=== PATIENT | male | born 1950 | race Caucasian/White ===

== ENCOUNTER 2016-10-03 19:30 | Inpatient (IN) | payer MEDICARE, MEDICAID ==
[~2016-10-03] VITALS: Ht 196.8 cm; Wt 109.9 kg
[~2016-10-03 19:30] MED LIST: AMLO2.5T2 PO; APIX5TAB PO; ASPI-496 PO; DIAZ5TAB PO; DOCU-30 PO; HYDR-3307 PO; INSU100C SQ-INSULIN; INSU100C5 SQ-INSULIN; INSU100I28 SQ-INSULIN; INSU100V13 SQ; LACT10SO28 PO; METF500T PO; METF500T4 PO; METO50TA82 PO; OXYC-229 PO; OXYC-302 PO; OXYC10TA32 PO; QUET50TA5 PO; RIVA15TA PO; RIVA20TA PO; THIA100V3 PO; TRAM-28 PO; ZONI100C13 PO
[2016-10-03] MEDS ORDERED: DEXTROSE 50%, 50ML SYRINGE ONE ×3 (19:44→22:30)
[2016-10-03] MEDS ORDERED: DEXTROSE 50%, 50ML SYRINGE IVPush ONE ×4 (20:00→23:00)
[2016-10-03] MEDS ORDERED: SODIUM CHLORIDE 0.9% 1,000 ML IV ONE (20:02)
[2016-10-03] MEDS ORDERED: NALOXONE 0.4 MG/ML, 1ML ONE (20:07)
[2016-10-03] MEDS ORDERED: NALOXONE 0.4 MG/ML, 1ML IVPush ONE (20:30)
[2016-10-03] MEDS ORDERED: SODIUM CHLORIDE FLUSH 10ML SYR IVF ONE (20:30)
[2016-10-03] MEDS ORDERED: SODIUM CHLORIDE 0.9% 1,000ML IVBOLUS ONE ×2 (20:30→21:00)
[2016-10-03 20:32] LABS: HEMOGLOBIN 12.9 g/dL (13.7-18.0)
[2016-10-03 20:40] LABS: ASPARTATE AMINO TRANSFERASE 15 U/L (15-37); BLOOD UREA NITROGEN 49 mg/dL (7-18)
[2016-10-03] MEDS ORDERED: DEXTROSE 10% 500 ML IV SCH (21:30)
[2016-10-03 22:11] LABS: ICTOTEST POSITIVE
[2016-10-03] MEDS ORDERED: BISACODYL 10 MG SUPP PR PRN (22:30)
[2016-10-03] MEDS ORDERED: DEXTROSE 10% 1,000 ML IV SCH ×2 (22:30→22:43)
[2016-10-03] MEDS: ZONISAMIDE 50 MG CAPSULE PO SCH (22:30)
[2016-10-03] MEDS ORDERED: ACETAMINOPHEN 325 MG TABLET PO PRN (22:30)
[2016-10-03] MEDS: LACTULOSE 10 GM/15 ML UDC PO SCH (22:30)
[2016-10-03] MEDS: APIXABAN 5 MG TABLET PO SCH (22:30)
[2016-10-03] MEDS ORDERED: ONDANSETRON 2MG/ML, 2ML IVP PRN (22:30)
[2016-10-04 00:11] LABS: DAU SCREEN DISCLAIMER
[2016-10-04 01:57] VITALS: BP 135/85
[2016-10-04 02:00] VITALS: BP 135/85
[2016-10-04 04:00] VITALS: BP 90/74
[2016-10-04 05:16] LABS: HEMOGLOBIN 10.9 g/dL (13.7-18.0)
[2016-10-04 05:31] LABS: ASPARTATE AMINO TRANSFERASE 13 U/L (15-37); BLOOD UREA NITROGEN 42 mg/dL (7-18)
[2016-10-04] MEDS: ZONISAMIDE 50 MG CAPSULE PO SCH ×2 (09:00→11:36)
[2016-10-04] MEDS: APIXABAN 5 MG TABLET PO SCH ×2 (09:00→11:35)
[2016-10-04] MEDS: INSULIN ASPART 100 UNITS/ML, PEN SQ-INSULIN SCH ×3 (11:28→20:12)
[2016-10-04] MEDS: LACTULOSE 10 GM/15 ML UDC PO SCH ×2 (11:35→20:12)
[2016-10-04] MEDS ORDERED: LACTULOSE 10 GM/15 ML UDC PO ONE (13:00)
[2016-10-04 16:00] VITALS: BP 128/44
[2016-10-04 17:49] VITALS: BP 146/77
[2016-10-04 19:18] VITALS: BP 152/80
[2016-10-05 02:25] VITALS: BP 149/82
[2016-10-05 06:10] LABS: BLOOD UREA NITROGEN 27 mg/dL (7-18)
[2016-10-05 06:42] VITALS: BP 155/81
[2016-10-05] MEDS: INSULIN ASPART 100 UNITS/ML, PEN SQ-INSULIN SCH ×4 (08:42→20:23)
[2016-10-05] MEDS: LACTULOSE 10 GM/15 ML UDC PO SCH ×2 (08:43→20:22)
[2016-10-05 13:04] VITALS: BP 107/66
[2016-10-05] MEDS: HEPARIN 5,000 UNITS/ML, 1ML SQ SCH ×2 (17:01→23:05)
[2016-10-05] MEDS ORDERED: INSU100V13 SQ (18:08)
[2016-10-05] MEDS ORDERED: IBUP800T PO (18:08)
[2016-10-05] MEDS ORDERED: LINA145C PO (18:08)
[2016-10-05] MEDS ORDERED: OXYC-229 PO (18:08)
[2016-10-05] MEDS: OXYcodone/APAP 5/325MG TABLET PO PRN (18:31)
[2016-10-05 19:06] VITALS: BP 110/63
[2016-10-06 01:55] VITALS: BP 122/66
[2016-10-06 06:42] VITALS: BP 150/86
[2016-10-06] MEDS: LACTULOSE 10 GM/15 ML UDC PO SCH ×2 (08:11→21:08)
[2016-10-06] MEDS: HEPARIN 5,000 UNITS/ML, 1ML SQ SCH ×3 (08:16→23:50)
[2016-10-06] MEDS: INSULIN ASPART 100 UNITS/ML, PEN SQ-INSULIN SCH ×4 (08:18→21:08)
[2016-10-06] MEDS: OXYcodone/APAP 5/325MG TABLET PO PRN (12:20)
[2016-10-06 12:55] VITALS: BP 129/78
[2016-10-06 19:19] VITALS: BP 135/77
[2016-10-07 01:10] VITALS: BP 128/92
[2016-10-07 06:49] VITALS: BP 157/81
[2016-10-07] MEDS: OXYcodone/APAP 5/325MG TABLET PO PRN (08:05)
[2016-10-07] MEDS: HEPARIN 5,000 UNITS/ML, 1ML SQ SCH (08:06)
[2016-10-07] MEDS: LACTULOSE 10 GM/15 ML UDC PO SCH (08:06)
[2016-10-07] MEDS: INSULIN ASPART 100 UNITS/ML, PEN SQ-INSULIN SCH ×2 (08:07→11:18)
[2016-10-07] MEDS ORDERED: LISINOPRIL 5 MG TABLET PO SCH (09:00)
[2016-10-07] MEDS ORDERED: INSU100V8 SQ (09:49)
[2016-10-07] MEDS ORDERED: OXYC1TAB7 PO (09:49)
[2016-10-07] MEDS ORDERED: LISI5TAB7 PO (09:49)
[2016-10-07 13:29] VITALS: BP 164/79
== END 2016-10-07 14:04 | DRG 896 ==
LOC: ED 21:35 → EDIP 21:40 → CCU 22:46 → 3NE 10-04 17:35
PROVIDERS: ADMIT Internal Medicine; ATTEND Internal Medicine
PROC: 0T9B70Z Drainage of Bladder with Drainage Device, Via Natural or Artificial Opening (ICD-10-PCS; principal; 2016-10-03)
DX: F11.288 Opioid dependence with other opioid-induced disorder (principal); G93.40 Encephalopathy, unspecified; N17.0 Acute kidney failure with tubular necrosis; E87.2 Acidosis; D68.69 Other thrombophilia; E87.6 Hypokalemia; D64.9 Anemia, unspecified; E11.649 Type 2 diabetes mellitus with hypoglycemia without coma; I10 Essential (primary) hypertension; E11.65 Type 2 diabetes mellitus with hyperglycemia; G47.30 Sleep apnea, unspecified; F32.9 Major depressive disorder, single episode, unspecified; M19.90 Unspecified osteoarthritis, unspecified site; R62.7 Adult failure to thrive; N20.0 Calculus of kidney; G89.29 Other chronic pain; K59.03 Drug induced constipation; G40.909 Epilepsy, unspecified, not intractable, without status epilepticus; Z79.01 Long term (current) use of anticoagulants; Z79.4 Long term (current) use of insulin; Z86.711 Personal history of pulmonary embolism; Z87.442 Personal history of urinary calculi; Z88.8 Allergy status to other drugs, medicaments and biological substances; Z91.19 Patient's noncompliance with other medical treatment and regimen
CPT/HCPCS: 36415; 74022; 80048; 80053; 80307; 81001; 82140; 82962; 83036; 83605; 83880; 85025; 87081; 87086; 93005; 96361; 96374; 96375; J1644; J1815; J2310; 92523-GN; J7030

== ENCOUNTER 2016-10-26 20:36 | Emergency (ER) | payer MEDICARE, MEDICAID ==
[~2016-10-26] VITALS: Ht 198.1 cm; Wt 106.8 kg
[~2016-10-26 20:36] MED LIST changes: +IBUP800T PO; +INSU100V8 SQ; +LINA145C PO; +LISI5TAB7 PO; +OXYC1TAB7 PO
[2016-10-26 20:41] VITALS: BP 152/82
== END 2016-10-26 21:03 | disposition home or self-care (01) ==
LOC: EDBD 20:57 → ED 20:57
DX: Z02.9 Encounter for administrative examinations, unspecified (principal)

== ENCOUNTER 2016-10-26 21:02 | Emergency (ER) | payer MEDICARE, MEDICAID ==
[~2016-10-26] VITALS: Ht 198.1 cm; Wt 106.8 kg
[2016-10-27 03:09] VITALS: BP 137/89
== END 2016-10-27 03:39 | disposition home or self-care (01) ==
LOC: MERGE 23:59 → ED 23:59
DX: M48.56XA Collapsed vertebra, not elsewhere classified, lumbar region, initial encounter for fracture (principal); M47.896 Other spondylosis, lumbar region; E11.9 Type 2 diabetes mellitus without complications
CPT/HCPCS: 72148; 99284

== ENCOUNTER 2016-11-08 20:16 | Inpatient (IN) | payer MEDICARE, MEDICAID ==
[~2016-11-08] VITALS: Ht 198.1 cm; Wt 113.6 kg
[2016-11-08] MEDS ORDERED: ALBUTEROL SULFATE 2.5 MG/3 ML ONE (21:11)
[2016-11-08] MEDS ORDERED: ALBUTEROL SULFATE 2.5 MG/3 ML NPPB ONE (21:30)
[2016-11-08] MEDS ORDERED: AZITHROMYCIN 500 MG in SODIUM CHLORIDE 0.9% 250 ML IVPB ONE (21:30)
[2016-11-08] MEDS ORDERED: SODIUM CHLORIDE FLUSH 10ML SYR IVF ONE (21:30)
[2016-11-08] MEDS ORDERED: methylPREDNISolone SOD SUCC 125 MG/2 ML IVP ONE (21:30)
[2016-11-08] MEDS ORDERED: methylPREDNISolone SOD SUCC 125 MG/2 ML ONE (21:36)
[2016-11-08] MEDS ORDERED: SODIUM CHLORIDE 0.9% 1,000 ML IV ONE (22:09)
[2016-11-08 22:17] LABS: ASPARTATE AMINO TRANSFERASE 11 U/L (15-37); BLOOD UREA NITROGEN 22 mg/dL (7-18)
[2016-11-08 22:22] LABS: IS PT STATUS REG ER OR PRE ER? YES
[2016-11-08] MEDS ORDERED: CEFTRIAXONE PMX 1GM/50ML 50 ML IV ONE (22:30)
[2016-11-08] MEDS ORDERED: SODIUM CHLORIDE 0.9%, 500ML IVBOLUS ONE (22:30)
[2016-11-08] MEDS ORDERED: CEFTRIAXONE PMX 1GM/50ML 50 ML ONE (23:17)
[2016-11-09] MEDS ORDERED: GUAIFENESIN/DM 200-20MG, 10ML UDC PO PRN
[2016-11-09] MEDS ORDERED: POLYETHYLENE GLYCOL 17 GM PACKET PO PRN
[2016-11-09] MEDS ORDERED: TEMPLATE NON-FORMULARY MED. (Insulin Aspart** (Novolog**) 0 UNITS) SQ-INSULIN SCH
[2016-11-09] MEDS ORDERED: VANCOMYCIN PER PHARMACY MC PRN
[2016-11-09] MEDS ORDERED: ACETAMINOPHEN 325 MG TABLET PO PRN
[2016-11-09] MEDS ORDERED: ONDANSETRON 2MG/ML, 2ML IVP PRN
[2016-11-09] MEDS ORDERED: BISACODYL 10 MG SUPP PR PRN
[2016-11-09] MEDS ORDERED: PHARMACOKINETIC MONITORING MC PRN (00:30)
[2016-11-09] MEDS ORDERED: VANCOMYCIN 1,700 MG in SODIUM CHLORIDE 0.9% 250 ML IV SCH (00:30)
[2016-11-09] MEDS ORDERED: PHARMACOKINETIC CONSULTATION MC ONE (00:30)
[2016-11-09 00:36] VITALS: BP 135/74
[2016-11-09] MEDS: NS + 20MEQ KCL 1,000 ML IV SCH ×2 (01:14→21:17)
[2016-11-09] MEDS: PIPERACILLIN/TAZO/PMX 3.375GM 50 ML IV SCH ×3 (01:14→12:02)
[2016-11-09] MEDS: INSULIN DETEMIR 100 UNITS/ML, PEN SQ-INSULIN SCH ×3 (01:44→21:19)
[2016-11-09] MEDS: HEPARIN 5,000 UNITS/ML, 1ML SQ SCH ×3 (01:44→08:29)
[2016-11-09] MEDS: OXYcodone/APAP 5/325MG TABLET PO PRN ×2 (01:45→15:19)
[2016-11-09 07:59] VITALS: BP 130/77
[2016-11-09] MEDS: LACTULOSE 10 GM/15 ML UDC PO SCH ×3 (08:28→21:17)
[2016-11-09] MEDS: INSULIN ASPART 100 UNITS/ML, 3ML PEN HIGH DOSE SS SQ-INSULIN SCH ×4 (08:28→21:18)
[2016-11-09] MEDS: SENNA/DOCUSATE TABLET PO SCH (08:29)
[2016-11-09 08:30] LABS: ASPARTATE AMINO TRANSFERASE 10 U/L (15-37); BLOOD UREA NITROGEN 23 mg/dL (7-18)
[2016-11-09] MEDS: LISINOPRIL 5 MG TABLET PO SCH (08:30)
[2016-11-09] MEDS: ZONISAMIDE 50 MG CAPSULE PO SCH ×3 (08:40→21:00)
[2016-11-09 13:38] VITALS: BP 104/51
[2016-11-09 19:35] VITALS: BP 101/62
[2016-11-10 02:00] VITALS: BP 103/64
[2016-11-10 07:17] LABS: BLOOD UREA NITROGEN 27 mg/dL (7-18)
[2016-11-10 07:46] VITALS: BP 139/76
[2016-11-10] MEDS: INSULIN ASPART 100 UNITS/ML, 3ML PEN HIGH DOSE SS SQ-INSULIN SCH ×4 (08:49→20:09)
[2016-11-10] MEDS: CEFTRIAXONE PMX 1GM/50ML 50 ML IV SCH (08:49)
[2016-11-10] MEDS: LACTULOSE 10 GM/15 ML UDC PO SCH ×2 (08:49→20:09)
[2016-11-10] MEDS: AZITHROMYCIN 250 MG TABLET PO SCH (08:52)
[2016-11-10] MEDS: ENOXAPARIN 40 MG/0.4 ML SQ SCH (08:53)
[2016-11-10] MEDS: ZONISAMIDE 50 MG CAPSULE PO SCH (09:00)
[2016-11-10] MEDS: SENNA/DOCUSATE TABLET PO SCH (09:04)
[2016-11-10] MEDS: LISINOPRIL 5 MG TABLET PO SCH (09:48)
[2016-11-10] MEDS: INSULIN DETEMIR 100 UNITS/ML, PEN SQ-INSULIN SCH ×2 (09:49→21:34)
[2016-11-10] MEDS: OXYcodone/APAP 5/325MG TABLET PO PRN ×3 (09:50→22:32)
[2016-11-10] MEDS: NS + 20MEQ KCL 1,000 ML IV SCH (10:45)
[2016-11-10 13:45] VITALS: BP 114/62
[2016-11-10 18:45] VITALS: BP 111/57
[2016-11-11] MEDS: NS + 20MEQ KCL 1,000 ML IV SCH ×2 (03:58→19:22)
[2016-11-11 07:50] VITALS: BP 136/64
[2016-11-11] MEDS: INSULIN ASPART 100 UNITS/ML, 3ML PEN HIGH DOSE SS SQ-INSULIN SCH ×4 (07:57→21:04)
[2016-11-11] MEDS: INSULIN DETEMIR 100 UNITS/ML, PEN SQ-INSULIN SCH ×2 (07:58→21:03)
[2016-11-11] MEDS: LACTULOSE 10 GM/15 ML UDC PO SCH ×2 (07:58→21:00)
[2016-11-11] MEDS: AZITHROMYCIN 250 MG TABLET PO SCH (07:59)
[2016-11-11] MEDS: SENNA/DOCUSATE TABLET PO SCH (07:59)
[2016-11-11] MEDS: LISINOPRIL 5 MG TABLET PO SCH (08:00)
[2016-11-11] MEDS: ENOXAPARIN 40 MG/0.4 ML SQ SCH (08:01)
[2016-11-11] MEDS: CEFTRIAXONE PMX 1GM/50ML 50 ML IV SCH (09:13)
[2016-11-11] MEDS: OXYcodone/APAP 5/325MG TABLET PO PRN ×2 (10:21→19:36)
[2016-11-11 14:07] VITALS: BP 110/64
[2016-11-11 20:05] VITALS: BP 127/76
[2016-11-12] MEDS: OXYcodone/APAP 5/325MG TABLET PO PRN ×4 (01:42→18:11)
[2016-11-12 06:22] VITALS: BP 135/80
[2016-11-12 07:08] VITALS: BP 144/77
[2016-11-12] MEDS: INSULIN ASPART 100 UNITS/ML, 3ML PEN HIGH DOSE SS SQ-INSULIN SCH ×4 (08:58→20:13)
[2016-11-12] MEDS: INSULIN DETEMIR 100 UNITS/ML, PEN SQ-INSULIN SCH ×2 (09:00→20:13)
[2016-11-12] MEDS: LACTULOSE 10 GM/15 ML UDC PO SCH ×2 (09:00→20:15)
[2016-11-12] MEDS: SENNA/DOCUSATE TABLET PO SCH (09:00)
[2016-11-12] MEDS: CEFTRIAXONE PMX 1GM/50ML 50 ML IV SCH (09:01)
[2016-11-12] MEDS: LISINOPRIL 5 MG TABLET PO SCH (09:02)
[2016-11-12] MEDS: AZITHROMYCIN 250 MG TABLET PO SCH (09:02)
[2016-11-12] MEDS: ENOXAPARIN 40 MG/0.4 ML SQ SCH (09:03)
[2016-11-12] MEDS ORDERED: CEFD300C37 PO (09:45)
[2016-11-12] MEDS ORDERED: AZIT250T89 PO (09:45)
[2016-11-12] MEDS: NS + 20MEQ KCL 1,000 ML IV SCH (11:28)
[2016-11-12 14:32] VITALS: BP 123/72
[2016-11-12] MEDS: CEFDINIR 300 MG CAPSULE PO SCH (20:15)
[2016-11-13] MEDS: OXYcodone/APAP 5/325MG TABLET PO PRN ×2 (00:13→08:09)
[2016-11-13 02:00] VITALS: BP 125/76
[2016-11-13 07:09] VITALS: BP 174/95
[2016-11-13] MEDS: AZITHROMYCIN 250 MG TABLET PO SCH (08:09)
[2016-11-13] MEDS: CEFDINIR 300 MG CAPSULE PO SCH (08:09)
[2016-11-13] MEDS: LISINOPRIL 5 MG TABLET PO SCH (08:10)
[2016-11-13] MEDS: SENNA/DOCUSATE TABLET PO SCH (08:10)
[2016-11-13] MEDS: LACTULOSE 10 GM/15 ML UDC PO SCH (08:10)
[2016-11-13] MEDS: INSULIN DETEMIR 100 UNITS/ML, PEN SQ-INSULIN SCH (08:11)
[2016-11-13] MEDS: INSULIN ASPART 100 UNITS/ML, 3ML PEN HIGH DOSE SS SQ-INSULIN SCH ×2 (08:13→11:00)
[2016-11-13] MEDS: ENOXAPARIN 40 MG/0.4 ML SQ SCH (10:43)
== END 2016-11-13 12:10 | DRG 193 ==
LOC: ED 22:22 → EDIP 22:55 → 3NE 11-09 00:23
PROVIDERS: ADMIT Internal Medicine; ATTEND Internal Medicine
DX: J18.9 Pneumonia, unspecified organism (principal); J96.01 Acute respiratory failure with hypoxia; E87.3 Alkalosis; E44.0 Moderate protein-calorie malnutrition; J98.11 Atelectasis; K21.9 Gastro-esophageal reflux disease without esophagitis; D64.9 Anemia, unspecified; E11.65 Type 2 diabetes mellitus with hyperglycemia; E78.5 Hyperlipidemia, unspecified; E87.6 Hypokalemia; F32.9 Major depressive disorder, single episode, unspecified; F41.9 Anxiety disorder, unspecified; G89.29 Other chronic pain; I10 Essential (primary) hypertension; I25.10 Atherosclerotic heart disease of native coronary artery without angina pectoris; Y95 Nosocomial condition; Z82.5 Family history of asthma and other chronic lower respiratory diseases; Z83.3 Family history of diabetes mellitus; Z86.711 Personal history of pulmonary embolism; Z87.442 Personal history of urinary calculi; Z79.4 Long term (current) use of insulin; Z88.8 Allergy status to other drugs, medicaments and biological substances; Z68.28 Body mass index [BMI] 28.0-28.9, adult
CPT/HCPCS: 36415; 71010; 80048; 80053; 81001; 82947; 82962; 83036; 83605; 83735; 83880; 84484; 85025; 85610; 87040; 87070; 87205; 93005; 94640; 96365; 96375; J0456; J0696; J1644; J1650; J1815; J2543; J3370; J3480; J7613; J2930; J7030; J7050

== ENCOUNTER 2016-12-19 14:59 | Emergency (ER) | payer MEDICARE, MEDICAID ==
[~2016-12-19] VITALS: Ht 195.6 cm; Wt 100.0 kg
[~2016-12-19 14:59] MED LIST changes: +AZIT250T89 PO; +CEFD300C37 PO
[2016-12-19] MEDS ORDERED: SODIUM CHLORIDE 0.9% 1,000 ML IV ONE (15:11)
[2016-12-19] MEDS ORDERED: PLEASE ENTER HEIGHT AND WEIGHT MC SCH (15:30)
[2016-12-19] MEDS ORDERED: SODIUM CHLORIDE FLUSH 10ML SYR IVF ONE (15:30)
[2016-12-19 16:13] VITALS: BP 94/47
== END 2016-12-19 18:15 | disposition home or self-care (01) ==
LOC: ED 16:29
DX: E10.649 Type 1 diabetes mellitus with hypoglycemia without coma (principal); Z79.4 Long term (current) use of insulin; Z91.19 Patient's noncompliance with other medical treatment and regimen
CPT/HCPCS: 99283

== ENCOUNTER 2016-12-21 15:12 | Inpatient (IN) | payer MEDICARE, MEDICAID ==
[~2016-12-21] VITALS: Ht 195.6 cm; Wt 107.1 kg
[2016-12-21] MEDS ORDERED: SODIUM CHLORIDE 0.9% 1,000ML IVBOLUS ONE (15:30)
[2016-12-21] MEDS ORDERED: SODIUM CHLORIDE 0.9% 1,000 ML IV ONE ×2 (15:30→19:33)
[2016-12-21] MEDS ORDERED: SODIUM CHLORIDE FLUSH 10ML SYR IVF ONE (15:30)
[2016-12-21] MEDS ORDERED: PLEASE ENTER HEIGHT AND WEIGHT MC SCH (16:00)
[2016-12-21 16:29] LABS: BLOOD UREA NITROGEN 19 mg/dL (7-18)
[2016-12-21 16:30] LABS: ASPARTATE AMINO TRANSFERASE 31 U/L (15-37)
[2016-12-21 16:31] LABS: ACETAMINOPHEN < 2 mcg/mL (10-30)
[2016-12-21 16:34] LABS: IS PT STATUS REG ER OR PRE ER? YES
[2016-12-21 17:18] LABS: DAU SCREEN DISCLAIMER
[2016-12-21 17:39] LABS: PATH.CAST-FLAG NOT PRESENT; SPERM-FLAG NOT PRESENT; SRC-FLAG NOT PRESENT; XTAL-FLAG NOT PRESENT; YLC-FLAG NOT PRESENT
[2016-12-21] MEDS ORDERED: SODIUM CHLORIDE FLUSH 10ML SYR IVF PRN (20:00)
[2016-12-21] MEDS ORDERED: ACETAMINOPHEN 650 MG SUPP ONE (20:15)
[2016-12-21] MEDS ORDERED: POLYETHYLENE GLYCOL 17 GM PACKET PO PRN (20:30)
[2016-12-21] MEDS ORDERED: ACETAMINOPHEN 650 MG SUPP PR ONE (20:30)
[2016-12-21] MEDS ORDERED: BISACODYL 10 MG SUPP PR PRN (20:30)
[2016-12-21] MEDS ORDERED: ONDANSETRON 2MG/ML, 2ML IVPush PRN (20:30)
[2016-12-21] MEDS ORDERED: LABETALOL 5MG/ML, 20ML IVPush PRN (20:30)
[2016-12-21] MEDS ORDERED: TRAZODONE 50MG TABLET PO PRN (20:30)
[2016-12-21] MEDS ORDERED: DOCUSATE 100 MG CAPSULE PO PRN (20:30)
[2016-12-21] MEDS: ENOXAPARIN 40 MG/0.4 ML SQ SCH (23:50)
[2016-12-21] MEDS: NS + 20MEQ KCL 1,000 ML IV SCH (23:50)
[2016-12-21] MEDS: INSULIN REGULAR 100 UNITS/ML, 3ML VIAL SQ-INSULIN SCH (23:52)
[2016-12-22 01:10] VITALS: BP 125/77
[2016-12-22] MEDS: NS + 20MEQ KCL 1,000 ML IV SCH (05:43)
[2016-12-22 05:47] LABS: BLOOD UREA NITROGEN 20 mg/dL (7-18)
[2016-12-22 05:59] LABS: ASPARTATE AMINO TRANSFERASE 23 U/L (15-37)
[2016-12-22 06:33] VITALS: BP 110/64
[2016-12-22] MEDS: LISINOPRIL 5 MG TABLET PO SCH (09:00)
[2016-12-22] MEDS: INSULIN REGULAR 100 UNITS/ML, 3ML VIAL SQ-INSULIN SCH ×4 (09:08→22:18)
[2016-12-22] MEDS: INSULIN DETEMIR 100 UNITS/ML, PEN SQ-INSULIN SCH (10:10)
[2016-12-22 14:31] VITALS: BP 94/55
[2016-12-22 19:00] VITALS: BP 114/67
[2016-12-22] MEDS: ENOXAPARIN 40 MG/0.4 ML SQ SCH (22:19)
[2016-12-23 00:51] VITALS: BP 157/80
[2016-12-23 07:06] VITALS: BP 107/68
[2016-12-23] MEDS: metFORMIN 500 MG TABLET PO SCH ×3 (08:00→17:00)
[2016-12-23] MEDS: INSULIN REGULAR 100 UNITS/ML, 3ML VIAL SQ-INSULIN SCH ×4 (08:33→20:55)
[2016-12-23] MEDS: INSULIN DETEMIR 100 UNITS/ML, PEN SQ-INSULIN SCH (08:34)
[2016-12-23 08:42] VITALS: BP 114/71
[2016-12-23] MEDS: LISINOPRIL 5 MG TABLET PO SCH (08:44)
[2016-12-23 14:00] VITALS: BP 116/67
[2016-12-23 18:40] VITALS: BP 92/54
[2016-12-23] MEDS: ENOXAPARIN 40 MG/0.4 ML SQ SCH (22:57)
[2016-12-24 01:17] VITALS: BP 142/71
[2016-12-24 07:20] VITALS: BP 127/60
[2016-12-24] MEDS: INSULIN DETEMIR 100 UNITS/ML, PEN SQ-INSULIN SCH (07:58)
[2016-12-24] MEDS: INSULIN REGULAR 100 UNITS/ML, 3ML VIAL SQ-INSULIN SCH ×4 (07:58→21:55)
[2016-12-24] MEDS: LISINOPRIL 5 MG TABLET PO SCH (08:00)
[2016-12-24] MEDS: metFORMIN 500 MG TABLET PO SCH (08:00)
[2016-12-24 12:59] VITALS: BP_SYST 116; BP_SYST 156; BP_DIAS 61; BP_DIAS 62; BP_DIAS 89
[2016-12-24] MEDS: metFORMIN 850 MG TABLET PO SCH (17:24)
[2016-12-24 20:00] VITALS: BP 119/73
[2016-12-24] MEDS: ENOXAPARIN 40 MG/0.4 ML SQ SCH (21:55)
[2016-12-25 02:00] VITALS: BP 123/77
[2016-12-25] MEDS: INSULIN REGULAR 100 UNITS/ML, 3ML VIAL SQ-INSULIN SCH ×4 (08:27→21:34)
[2016-12-25] MEDS: metFORMIN 850 MG TABLET PO SCH ×2 (08:29→16:25)
[2016-12-25] MEDS: LISINOPRIL 5 MG TABLET PO SCH (08:29)
[2016-12-25 08:36] VITALS: BP 142/83
[2016-12-25 12:00] VITALS: BP 106/71
[2016-12-25] MEDS ORDERED: METF850T PO (13:32)
[2016-12-25] MEDS ORDERED: LISI5TAB7 PO (13:32)
[2016-12-25] MEDS ORDERED: INSU100C5 SQ-INSULIN (13:32)
[2016-12-25] MEDS ORDERED: ZONI100C13 PO (13:32)
[2016-12-25] MEDS ORDERED: INSU100V8 SQ (13:32)
[2016-12-25] MEDS ORDERED: LACT10SO28 PO (13:32)
[2016-12-25 20:00] VITALS: BP 109/64
[2016-12-25] MEDS: ENOXAPARIN 40 MG/0.4 ML SQ SCH (22:43)
[2016-12-25] MEDS ORDERED: INSULIN REGULAR 100 UNITS/ML, 3ML VIAL SQ-INSULIN ONE (23:00)
[2016-12-26 02:00] VITALS: BP 102/64
[2016-12-26 06:50] VITALS: BP 103/68
[2016-12-26] MEDS: metFORMIN 850 MG TABLET PO SCH ×2 (08:10→17:09)
[2016-12-26] MEDS: LISINOPRIL 5 MG TABLET PO SCH (08:10)
[2016-12-26] MEDS: INSULIN REGULAR 100 UNITS/ML, 3ML VIAL SQ-INSULIN SCH ×4 (08:11→22:15)
[2016-12-26] MEDS: ACETAMINOPHEN 325 MG TABLET PO PRN ×2 (09:43→19:45)
[2016-12-26 13:38] VITALS: BP 110/75
[2016-12-26 19:23] VITALS: BP 108/60
[2016-12-26] MEDS: ENOXAPARIN 40 MG/0.4 ML SQ SCH (22:20)
[2016-12-27 01:55] VITALS: BP_SYST 88; BP_SYST 90; BP_DIAS 48; BP_DIAS 53
[2016-12-27] MEDS: LISINOPRIL 5 MG TABLET PO SCH (08:39)
[2016-12-27] MEDS: metFORMIN 850 MG TABLET PO SCH (08:39)
[2016-12-27] MEDS: INSULIN REGULAR 100 UNITS/ML, 3ML VIAL SQ-INSULIN SCH ×2 (08:41→11:37)
== END 2016-12-27 14:17 | disposition home or self-care (01) | DRG 91 ==
LOC: ED 17:34 → EDIP 19:33 → 4EST 20:32 → 3NE 12-24 00:56
PROVIDERS: ADMIT Internal Medicine
PROC: 0T9B70Z Drainage of Bladder with Drainage Device, Via Natural or Artificial Opening (ICD-10-PCS; principal; 2016-12-21)
DX: G92 Toxic encephalopathy (principal); E43 Unspecified severe protein-calorie malnutrition; R65.10 Systemic inflammatory response syndrome (SIRS) of non-infectious origin without acute organ dysfunction; I67.4 Hypertensive encephalopathy; E87.6 Hypokalemia; I10 Essential (primary) hypertension; E78.5 Hyperlipidemia, unspecified; D64.9 Anemia, unspecified; E11.65 Type 2 diabetes mellitus with hyperglycemia; I11.9 Hypertensive heart disease without heart failure; I25.10 Atherosclerotic heart disease of native coronary artery without angina pectoris; K21.9 Gastro-esophageal reflux disease without esophagitis; Z59.0 Homelessness; Z79.4 Long term (current) use of insulin; Z82.5 Family history of asthma and other chronic lower respiratory diseases; Z83.3 Family history of diabetes mellitus; Z86.711 Personal history of pulmonary embolism; Z68.28 Body mass index [BMI] 28.0-28.9, adult; F99 Mental disorder, not otherwise specified; G40.909 Epilepsy, unspecified, not intractable, without status epilepticus; T42.4X5A Adverse effect of benzodiazepines, initial encounter
CPT/HCPCS: 36415; 70450; 71010; 80053; 80307; 80329; 81001; 82140; 82947; 82962; 83036; 83605; 83735; 84145; 84439; 84443; 84484; 85025; 87040; 87324; 93005; 96360; 96361; J1650; J1815; J3480; G0480; J7030

== ENCOUNTER 2017-02-05 18:23 | Emergency (ER) | payer MEDICARE, MEDICAID ==
[~2017-02-05] VITALS: Ht 190.5 cm; Wt 101.0 kg
[~2017-02-05 18:23] MED LIST changes: +METF850T PO
[2017-02-05 18:38] VITALS: BP 110/77
== END 2017-02-05 20:31 | disposition home or self-care (01) ==
LOC: ED 18:34
DX: K59.00 Constipation, unspecified (principal); E11.9 Type 2 diabetes mellitus without complications; Z86.711 Personal history of pulmonary embolism; Z88.5 Allergy status to narcotic agent
CPT/HCPCS: 74000; 99283

== ENCOUNTER 2017-02-26 10:34 | Emergency (ER) | payer MEDICARE, MEDICAID ==
[~2017-02-26] VITALS: Ht 195.6 cm; Wt 107.0 kg
[2017-02-26] MEDS ORDERED: SODIUM CHLORIDE 0.9% 1,000ML IVBOLUS ONE (11:00)
[2017-02-26 11:16] LABS: BLOOD UREA NITROGEN 25 mg/dL (7-18)
[2017-02-26] MEDS ORDERED: INSULIN REGULAR 100 UNITS/ML, 3ML VIAL SQ-INSULIN ONE (12:00)
[2017-02-26] MEDS ORDERED: INSULIN REGULAR 100 UNITS/ML, 3ML VIAL ONE (12:38)
[2017-02-26 12:42] VITALS: BP 167/94
== END 2017-02-26 13:59 | disposition home or self-care (01) ==
LOC: ED 11:58
DX: K59.00 Constipation, unspecified (principal); E11.65 Type 2 diabetes mellitus with hyperglycemia; Z79.4 Long term (current) use of insulin
CPT/HCPCS: 36415; 74000; 80048; 82040; 96360; 96361; 96372; 99285; J7030

== ENCOUNTER 2017-02-28 10:49 | Inpatient (IN) | payer MEDICARE, MEDICAID ==
[~2017-02-28] VITALS: Ht 198.1 cm; Wt 102.4 kg
[~2017-02-28 10:49] MED LIST changes: +DOCU-131 PO; -DOCU-30 PO; +IBUP-1223 PO; -IBUP800T PO; -OXYC-229 PO; +OXYC-307 PO; -OXYC10TA32 PO; +OXYC10TA47 PO; -TRAM-28 PO; +TRAM-47 PO; -ZONI100C13 PO; +ZONI100C36 PO
[2017-02-28] MEDS ORDERED: SODIUM CHLORIDE 0.9% 1,000 ML IV ONE (11:06)
[2017-02-28] MEDS ORDERED: SODIUM CHLORIDE FLUSH 10ML SYR IVF ONE (11:30)
[2017-02-28] MEDS ORDERED: PLEASE ENTER HEIGHT AND WEIGHT MC SCH (11:30)
[2017-02-28 12:39] LABS: HEMATOCRIT 34.6 % (39.2-51.8); HEMOGLOBIN 11.4 g/dL (13.7-18.0); WHITE BLOOD COUNT 4.9 x10^3/uL (3.4-10)
[2017-02-28 12:52] LABS: ASPARTATE AMINO TRANSFERASE 9 U/L (15-37); BLOOD UREA NITROGEN 32 mg/dL (7-18)
[2017-02-28] MEDS ORDERED: INSU100V13 SQ (14:12)
[2017-02-28] MEDS ORDERED: POLY17PO5 PO (14:53)
[2017-02-28] MEDS ORDERED: SODIUM CHLORIDE FLUSH 10ML SYR IVF PRN (15:00)
[2017-02-28] MEDS ORDERED: DOCUSATE 100 MG CAPSULE PO PRN (16:00)
[2017-02-28] MEDS ORDERED: ACETAMINOPHEN 325 MG TABLET PO PRN (16:00)
[2017-02-28] MEDS ORDERED: BISACODYL 10 MG SUPP PR PRN (16:00)
[2017-02-28] MEDS ORDERED: DEXTROSE 50%, 50ML SYRINGE IVPush PRN (16:00)
[2017-02-28] MEDS ORDERED: DEXTROSE 4 GM TAB.CHEW PO PRN (16:00)
[2017-02-28] MEDS ORDERED: GLUCAGON 1 MG IM PRN (16:00)
[2017-02-28] MEDS ORDERED: POTASSIUM CHLORIDE 20 MEQ TAB.ER.PRT PO ONE (16:00)
[2017-02-28 17:32] VITALS: BP 112/60
[2017-02-28] MEDS: ENOXAPARIN 40 MG/0.4 ML SQ SCH (17:55)
[2017-02-28] MEDS: SODIUM CHLORIDE 0.9% 1,000 ML IV SCH (17:55)
[2017-02-28 18:23] LABS: DAU SCREEN DISCLAIMER
[2017-02-28 18:28] LABS: PATH.CAST-FLAG NOT PRESENT; SPERM-FLAG NOT PRESENT; SRC-FLAG NOT PRESENT; XTAL-FLAG NOT PRESENT; YLC-FLAG NOT PRESENT
[2017-02-28] MEDS: INSULIN ASPART 100 UNITS/ML, PEN SQ-INSULIN SCH ×2 (18:32→21:06)
[2017-02-28 20:53] VITALS: BP 128/75
[2017-02-28] MEDS: INSULIN DETEMIR 100 UNITS/ML, PEN SQ-INSULIN SCH (21:05)
[2017-02-28] MEDS: SODIUM CHLORIDE FLUSH 10ML SYR IVF SCH (21:05)
[2017-03-01 02:15] VITALS: BP 132/74
[2017-03-01] MEDS: SODIUM CHLORIDE 0.9% 1,000 ML IV SCH (02:24)
[2017-03-01] MEDS: CEFTRIAXONE PMX 2GM/50ML 50 ML IV SCH (03:20)
[2017-03-01 07:50] VITALS: BP 150/88
[2017-03-01] MEDS: INSULIN ASPART 100 UNITS/ML, PEN SQ-INSULIN SCH ×4 (08:55→20:10)
[2017-03-01] MEDS: INSULIN DETEMIR 100 UNITS/ML, PEN SQ-INSULIN SCH ×2 (08:56→20:09)
[2017-03-01] MEDS: SODIUM CHLORIDE FLUSH 10ML SYR IVF SCH ×2 (08:56→20:08)
[2017-03-01] MEDS: DOXYCYCLINE 100MG TABLET PO SCH ×2 (12:35→20:08)
[2017-03-01 13:10] VITALS: BP 128/78
[2017-03-01] MEDS: ENOXAPARIN 40 MG/0.4 ML SQ SCH (17:38)
[2017-03-01 20:04] VITALS: BP 122/55
[2017-03-02 03:28] VITALS: BP 129/78
[2017-03-02] MEDS: CEFTRIAXONE PMX 2GM/50ML 50 ML IV SCH (03:35)
[2017-03-02 07:59] VITALS: BP 145/76
[2017-03-02] MEDS: INSULIN DETEMIR 100 UNITS/ML, PEN SQ-INSULIN SCH ×2 (08:06→21:08)
[2017-03-02] MEDS: DOXYCYCLINE 100MG TABLET PO SCH ×2 (08:07→21:02)
[2017-03-02] MEDS: INSULIN ASPART 100 UNITS/ML, PEN SQ-INSULIN SCH ×4 (08:07→21:09)
[2017-03-02] MEDS: SODIUM CHLORIDE FLUSH 10ML SYR IVF SCH ×2 (08:12→21:01)
[2017-03-02] MEDS: POLYETHYLENE GLYCOL 17 GM PACKET PO PRN (08:18)
[2017-03-02 11:43] LABS: HEMATOCRIT 35.5 % (39.2-51.8); HEMOGLOBIN 11.9 g/dL (13.7-18.0); WHITE BLOOD COUNT 3.6 x10^3/uL (3.4-10)
[2017-03-02 11:50] LABS: BLOOD UREA NITROGEN 28 mg/dL (7-18)
[2017-03-02 13:40] VITALS: BP 140/76
[2017-03-02] MEDS: ENOXAPARIN 40 MG/0.4 ML SQ SCH (18:16)
[2017-03-02 19:00] VITALS: BP 118/67
[2017-03-03] MEDS: CEFTRIAXONE PMX 2GM/50ML 50 ML IV SCH (03:45)
[2017-03-03 03:48] VITALS: BP 111/60
[2017-03-03] MEDS: INSULIN ASPART 100 UNITS/ML, PEN SQ-INSULIN SCH ×4 (07:00→21:46)
[2017-03-03 07:39] VITALS: BP 138/80
[2017-03-03] MEDS: SODIUM CHLORIDE FLUSH 10ML SYR IVF SCH ×2 (09:00→21:00)
[2017-03-03] MEDS: DOXYCYCLINE 100MG TABLET PO SCH ×2 (10:11→21:01)
[2017-03-03] MEDS: INSULIN DETEMIR 100 UNITS/ML, PEN SQ-INSULIN SCH ×2 (10:11→21:46)
[2017-03-03 12:48] VITALS: BP 135/76
[2017-03-03] MEDS: ENOXAPARIN 40 MG/0.4 ML SQ SCH (18:04)
[2017-03-03 19:10] VITALS: BP 131/61
[2017-03-04 02:06] VITALS: BP 144/75
[2017-03-04] MEDS: CEFTRIAXONE PMX 2GM/50ML 50 ML IV SCH (03:42)
[2017-03-04 06:42] VITALS: BP 122/72
[2017-03-04] MEDS: INSULIN DETEMIR 100 UNITS/ML, PEN SQ-INSULIN SCH ×2 (10:14→21:28)
[2017-03-04] MEDS: SODIUM CHLORIDE FLUSH 10ML SYR IVF SCH ×2 (10:15→21:29)
[2017-03-04] MEDS: DOXYCYCLINE 100MG TABLET PO SCH ×2 (10:15→21:26)
[2017-03-04] MEDS: OXYcodone/APAP 10/325MG TABLET PO PRN ×2 (11:36→21:26)
[2017-03-04] MEDS: INSULIN ASPART 100 UNITS/ML, PEN SQ-INSULIN SCH ×4 (11:39→21:29)
[2017-03-04 12:25] LABS: HEMATOCRIT 37.7 % (39.2-51.8); HEMOGLOBIN 12.6 g/dL (13.7-18.0); WHITE BLOOD COUNT 5.2 x10^3/uL (3.4-10)
[2017-03-04 12:32] LABS: BLOOD UREA NITROGEN 28 mg/dL (7-18)
[2017-03-04 13:57] VITALS: BP 127/78
[2017-03-04] MEDS: ENOXAPARIN 40 MG/0.4 ML SQ SCH (18:08)
[2017-03-04 19:29] VITALS: BP 105/53
[2017-03-04] MEDS: POLYETHYLENE GLYCOL 17 GM PACKET PO PRN (21:51)
[2017-03-05 01:02] VITALS: BP 104/68
[2017-03-05] MEDS: OXYcodone/APAP 10/325MG TABLET PO PRN ×3 (04:02→22:10)
[2017-03-05] MEDS: CEFTRIAXONE PMX 2GM/50ML 50 ML IV SCH (04:02)
[2017-03-05 07:46] VITALS: BP 110/72
[2017-03-05] MEDS: INSULIN DETEMIR 100 UNITS/ML, PEN SQ-INSULIN SCH ×2 (10:11→22:05)
[2017-03-05] MEDS: INSULIN ASPART 100 UNITS/ML, PEN SQ-INSULIN SCH ×2 (10:12→11:00)
[2017-03-05] MEDS: DOXYCYCLINE 100MG TABLET PO SCH (10:12)
[2017-03-05] MEDS: SODIUM CHLORIDE FLUSH 10ML SYR IVF SCH ×2 (10:12→21:00)
[2017-03-05 14:07] VITALS: BP 114/78
[2017-03-05] MEDS: metroNIDAZOLE 500 MG TABLET PO SCH ×2 (14:08→22:05)
[2017-03-05] MEDS: OMEPRAZOLE 20 MG CAPSULE.DR PO SCH (16:09)
[2017-03-05] MEDS: ENOXAPARIN 40 MG/0.4 ML SQ SCH (16:09)
[2017-03-05 19:30] VITALS: BP 120/64
[2017-03-06 02:00] VITALS: BP 132/70
[2017-03-06 06:15] LABS: BLOOD UREA NITROGEN 29 mg/dL (7-18)
[2017-03-06] MEDS: OXYcodone/APAP 10/325MG TABLET PO PRN ×3 (06:16→20:01)
[2017-03-06] MEDS: metroNIDAZOLE 500 MG TABLET PO SCH ×3 (06:16→22:18)
[2017-03-06] MEDS ORDERED: OMEPRAZOLE 20 MG CAPSULE.DR PO SCH (07:30)
[2017-03-06] MEDS: OMEPRAZOLE 20 MG CAPSULE.DR PO SCH (07:30)
[2017-03-06 07:37] VITALS: BP 149/84
[2017-03-06] MEDS: INSULIN DETEMIR 100 UNITS/ML, PEN SQ-INSULIN SCH ×2 (09:12→22:17)
[2017-03-06] MEDS: SODIUM CHLORIDE FLUSH 10ML SYR IVF SCH ×2 (09:13→22:18)
[2017-03-06 13:46] VITALS: BP 125/64
[2017-03-06] MEDS: ENOXAPARIN 40 MG/0.4 ML SQ SCH (16:57)
[2017-03-06] MEDS ORDERED: OMNIPAQUE 350 MG/ML, 100ML BOTTLE ONE (17:21)
[2017-03-06] MEDS: POLYETHYLENE GLYCOL 17 GM PACKET PO PRN (20:02)
[2017-03-06 20:29] VITALS: BP 108/62
[2017-03-06] MEDS: INSULIN ASPART 100 UNITS/ML, PEN SQ-INSULIN SCH (22:18)
[2017-03-07 03:15] VITALS: BP 102/64
[2017-03-07] MEDS: metroNIDAZOLE 500 MG TABLET PO SCH ×3 (05:44→20:26)
[2017-03-07 07:56] VITALS: BP 112/55
[2017-03-07] MEDS: INSULIN ASPART 100 UNITS/ML, PEN SQ-INSULIN SCH ×4 (09:07→20:26)
[2017-03-07] MEDS: OMEPRAZOLE 20 MG CAPSULE.DR PO SCH (09:08)
[2017-03-07] MEDS: INSULIN DETEMIR 100 UNITS/ML, PEN SQ-INSULIN SCH ×2 (09:08→20:26)
[2017-03-07] MEDS: SODIUM CHLORIDE FLUSH 10ML SYR IVF SCH ×2 (09:08→20:26)
[2017-03-07 12:39] VITALS: BP 148/83
[2017-03-07] MEDS: ENOXAPARIN 40 MG/0.4 ML SQ SCH ×2 (16:00→16:42)
[2017-03-07] MEDS ORDERED: DOCUSATE 100 MG CAPSULE PO PRN (19:30)
[2017-03-07] MEDS ORDERED: BISACODYL 10 MG SUPP PR PRN (19:30)
[2017-03-07] MEDS ORDERED: DEXTROSE 4 GM TAB.CHEW PO PRN (19:30)
[2017-03-07] MEDS ORDERED: GLUCAGON 1 MG IM PRN (19:30)
[2017-03-07] MEDS ORDERED: DEXTROSE 50%, 50ML SYRINGE IVPush PRN (19:30)
[2017-03-07 20:00] VITALS: BP 97/50
[2017-03-07] MEDS: POLYETHYLENE GLYCOL 17 GM PACKET PO PRN (20:25)
[2017-03-07] MEDS: OXYcodone/APAP 10/325MG TABLET PO PRN (20:27)
[2017-03-08 02:00] VITALS: BP 96/59
[2017-03-08] MEDS: metroNIDAZOLE 500 MG TABLET PO SCH ×3 (05:29→20:22)
[2017-03-08 06:57] VITALS: BP 134/72
[2017-03-08] MEDS: OMEPRAZOLE 20 MG CAPSULE.DR PO SCH (07:30)
[2017-03-08] MEDS: INSULIN ASPART 100 UNITS/ML, PEN SQ-INSULIN SCH ×4 (08:24→20:23)
[2017-03-08] MEDS: INSULIN DETEMIR 100 UNITS/ML, PEN SQ-INSULIN SCH ×2 (08:24→20:23)
[2017-03-08] MEDS: OXYcodone/APAP 10/325MG TABLET PO PRN ×2 (08:25→17:00)
[2017-03-08] MEDS: SODIUM CHLORIDE FLUSH 10ML SYR IVF SCH ×2 (08:25→20:22)
[2017-03-08 12:14] VITALS: BP 115/71
[2017-03-08] MEDS: ENOXAPARIN 40 MG/0.4 ML SQ SCH (16:54)
[2017-03-08 20:00] VITALS: BP_SYST 130; BP_SYST 95; BP_DIAS 56; BP_DIAS 82
[2017-03-09] MEDS: metroNIDAZOLE 500 MG TABLET PO SCH ×3 (05:16→20:37)
[2017-03-09 06:59] VITALS: BP 156/80
[2017-03-09] MEDS: INSULIN ASPART 100 UNITS/ML, PEN SQ-INSULIN SCH ×4 (07:00→20:37)
[2017-03-09] MEDS: OMEPRAZOLE 20 MG CAPSULE.DR PO SCH (07:30)
[2017-03-09] MEDS: INSULIN DETEMIR 100 UNITS/ML, PEN SQ-INSULIN SCH ×2 (08:26→20:37)
[2017-03-09] MEDS: SODIUM CHLORIDE FLUSH 10ML SYR IVF SCH ×2 (08:27→20:38)
[2017-03-09] MEDS: ACETAMINOPHEN 325 MG TABLET PO PRN ×2 (08:30→23:45)
[2017-03-09] MEDS ORDERED: OXYC1TAB9 PO (09:50)
[2017-03-09 12:17] VITALS: BP 102/64
[2017-03-09] MEDS: ENOXAPARIN 40 MG/0.4 ML SQ SCH (16:00)
[2017-03-09 20:02] VITALS: BP 92/58
[2017-03-10] MEDS: metroNIDAZOLE 500 MG TABLET PO SCH ×3 (05:00→20:57)
[2017-03-10] MEDS: OMEPRAZOLE 20 MG CAPSULE.DR PO SCH (07:30)
[2017-03-10] MEDS: SODIUM CHLORIDE FLUSH 10ML SYR IVF SCH ×3 (09:00→21:00)
[2017-03-10] MEDS: INSULIN DETEMIR 100 UNITS/ML, PEN SQ-INSULIN SCH ×2 (10:33→22:13)
[2017-03-10] MEDS: INSULIN ASPART 100 UNITS/ML, PEN SQ-INSULIN SCH ×4 (10:34→20:59)
[2017-03-10 12:54] VITALS: BP 150/63
[2017-03-10] MEDS: ACETAMINOPHEN 325 MG TABLET PO PRN (16:25)
[2017-03-10] MEDS: ENOXAPARIN 40 MG/0.4 ML SQ SCH (16:26)
[2017-03-10 20:00] VITALS: BP 117/67
[2017-03-10] MEDS: POLYETHYLENE GLYCOL 17 GM PACKET PO PRN (22:07)
[2017-03-11 02:00] VITALS: BP 114/69
[2017-03-11] MEDS: metroNIDAZOLE 500 MG TABLET PO SCH ×3 (05:05→21:30)
[2017-03-11 07:27] VITALS: BP 120/74
[2017-03-11] MEDS: OMEPRAZOLE 20 MG CAPSULE.DR PO SCH ×2 (07:30→10:24)
[2017-03-11] MEDS: SODIUM CHLORIDE FLUSH 10ML SYR IVF SCH ×2 (09:00→21:00)
[2017-03-11] MEDS ORDERED: INSU100I28 SQ-INSULIN (10:00)
[2017-03-11] MEDS ORDERED: IBUP-1223 PO (10:00)
[2017-03-11] MEDS ORDERED: INSU100I18 SQ-INSULIN (10:00)
[2017-03-11] MEDS: INSULIN ASPART 100 UNITS/ML, PEN SQ-INSULIN SCH ×4 (10:23→21:31)
[2017-03-11] MEDS: INSULIN DETEMIR 100 UNITS/ML, PEN SQ-INSULIN SCH ×2 (10:24→21:32)
[2017-03-11 13:34] VITALS: BP 116/71
[2017-03-11] MEDS: ENOXAPARIN 40 MG/0.4 ML SQ SCH (15:56)
[2017-03-11 19:21] VITALS: BP 101/51
[2017-03-12] MEDS: ACETAMINOPHEN 325 MG TABLET PO PRN ×2 (01:08→09:55)
[2017-03-12 01:11] VITALS: BP 94/49
[2017-03-12] MEDS: metroNIDAZOLE 500 MG TABLET PO SCH (06:09)
[2017-03-12] MEDS: INSULIN ASPART 100 UNITS/ML, PEN SQ-INSULIN SCH (07:00)
[2017-03-12] MEDS: OMEPRAZOLE 20 MG CAPSULE.DR PO SCH (07:30)
[2017-03-12] MEDS: SODIUM CHLORIDE FLUSH 10ML SYR IVF SCH (09:00)
[2017-03-12] MEDS: INSULIN DETEMIR 100 UNITS/ML, PEN SQ-INSULIN SCH (10:04)
[2017-03-12] MEDS ORDERED: PINK LADY ENEMA 1,000 ML PR PRN (11:30)
== END 2017-03-12 12:32 | disposition home or self-care (01) | DRG 871 ==
LOC: ED 10:53 → EDIP 14:58 → 4EST 16:56
PROVIDERS: ADMIT Internal Medicine; ATTEND Internal Medicine
DX: A41.9 Sepsis, unspecified organism (principal); G93.41 Metabolic encephalopathy; I11.0 Hypertensive heart disease with heart failure; I50.30 Unspecified diastolic (congestive) heart failure; E11.65 Type 2 diabetes mellitus with hyperglycemia; F11.20 Opioid dependence, uncomplicated; F22 Delusional disorders; R62.7 Adult failure to thrive; B96.7 Clostridium perfringens [C. perfringens] as the cause of diseases classified elsewhere; E86.0 Dehydration; F32.9 Major depressive disorder, single episode, unspecified; G89.29 Other chronic pain; M19.90 Unspecified osteoarthritis, unspecified site; M25.569 Pain in unspecified knee; M54.5 Low back pain; J40 Bronchitis, not specified as acute or chronic; D63.8 Anemia in other chronic diseases classified elsewhere; D64.9 Anemia, unspecified; E78.5 Hyperlipidemia, unspecified; E87.6 Hypokalemia; F41.1 Generalized anxiety disorder; I25.10 Atherosclerotic heart disease of native coronary artery without angina pectoris; K21.9 Gastro-esophageal reflux disease without esophagitis; N20.0 Calculus of kidney; Z59.0 Homelessness; Z79.4 Long term (current) use of insulin; Z82.3 Family history of stroke; Z86.711 Personal history of pulmonary embolism; Z91.14 Patient's other noncompliance with medication regimen; Z79.899 Other long term (current) drug therapy
CPT/HCPCS: 36415; 70450; 71010; 74000; 74177; 80048; 80053; 80307; 81001; 82040; 82140; 82550; 82947; 82962; 83605; 83880; 84145; 85025; 85610; 85730; 87040; 87086; 93005; 93306; 96360; 96361; 96372; J0696; J1650; J1815; Q9967; G0479; J7030